=== PATIENT | female | born 1980 | race Caucasian/White ===

== ENCOUNTER 2016-07-17 21:10 | Emergency (ER) | payer OTHER ==
[~2016-07-17 21:10] MED LIST: IBUPROFEN600 MG PO; NORCO 10-325 T1 EACH PO
== END 2016-07-17 22:38 | disposition home or self-care (01) ==
LOC: ER1 21:10
DX: J06.9 Acute upper respiratory infection, unspecified (principal)
CPT/HCPCS: 87081; 87880; 99283

== ENCOUNTER 2016-09-04 12:15 | Emergency (ER) | payer OTHER ==
[2016-09-04 14:01] LABS: BUN/CREATININE RATIO 31 (0-10)
[2016-09-04 15:02] LABS: HEMOGLOBIN 11.7 gm/dl (12.3-15.3); RED BLOOD COUNT 4.13 M/UL (4.00-5.10); WHITE BLOOD COUNT 13.9 K/UL (4.5-11.0)
== END 2016-09-04 21:27 | disposition short-term general hospital (02) ==
LOC: ER1 12:15
PROVIDERS: Emergency Medicine
DX: K75.9 Inflammatory liver disease, unspecified (principal); Z90.49 Acquired absence of other specified parts of digestive tract
CPT/HCPCS: 36415; 80053; 81001; 83605; 83690; 84703; 85025; 87040; 87086; 96361; 96372; 96374; 96375; 96376; 99285; J1630; J2270; J2405; J7050; Q9962

== ENCOUNTER 2020-06-05 12:30 | Emergency (ER) | payer OTHER ==
[~2020-06-05 12:30] MED LIST changes: +BACTRIM DS TAB1 EACH PO; +BACTROBAN OINT22 GM EXT; +KEFLEX CAP 500500 MG PO; +TESSALON PERLE100 MG PO; +ULTRAM50 MG PO
[2020-06-05 13:53] LABS: RED BLOOD COUNT 4.64 M/UL (4.00-5.10); WHITE BLOOD COUNT 4.5 K/UL (4.5-11.0)
[2020-06-05 14:20] LABS: BUN/CREATININE RATIO 17 (0-10)
== END 2020-06-05 16:35 | disposition home or self-care (01) ==
LOC: ER1 12:30
PROVIDERS: Student in an Organized Health Care Education/Training Program
DX: R07.89 Other chest pain (principal); R04.0 Epistaxis; Z90.710 Acquired absence of both cervix and uterus; Z20.822 Contact with and (suspected) exposure to COVID-19
CPT/HCPCS: 0240U; 71045; 80053; 82550; 82553; 83690; 83874; 84484; 85025; 93005; 99285